=== PATIENT | male | born 1990 ===

== ENCOUNTER 2021-10-13 18:24 | Emergency (ER) | payer MEDICAID ==
[~2021-10-13] VITALS: Ht 185.4 cm; Wt 104.0 kg
[2021-10-13 20:15] VITALS: BP 132/81
== END 2021-10-13 21:27 | disposition home or self-care (01) ==
LOC: EMS 18:26
DX: L25.5 Unspecified contact dermatitis due to plants, except food (principal)
CPT/HCPCS: 99283; Z7502